=== PATIENT | male | born 1990 | race African-American/Black ===

== ENCOUNTER 2017-11-27 08:05 | Emergency (ER) | payer SELFPAY ==
[2017-11-27 08:13] VITALS: BP 118/75; PULSE 60; TEMP 97.8; BMI 24.7
[2017-11-27] MEDS ORDERED: DIPHTH,PERTUSS(ACELL),TET 0.5 ML DISP.SYRIN IM ONE (08:23)
--- NOTE | 2017-11-27 08:23 | PDOC ---
History of Present Illness - General Chief Complaint: Injury Stated Complaint: LACERATION Time Seen by Provider: 11/27/17 08:20 History Source: Patient Exam Limitations: No Limitations - History of Present Illness Initial Comments: 11/27/17 09:21 27 yr male was climbing a fence and cut his left palm, thumb area this AM Occurred: reports: this morning (530 ) Past History - Past Medical History Allergies/Adverse Reactions: Allergies Allergy/AdvReac Type Severity Reaction Status Date / Time No Known Allergies Allergy Verified 11/27/17 08:12 Home Medications: Ambulatory Orders NK [No Known Home Medication] 11/27/17 COPD: No DVT: No Other medical history: denies - Suicide/Smoking/Psychosocial Hx Smoking History: Never smoked Information on smoking cessation initiated: No Hx Alcohol Use: No Drug/Substance Use Hx: No Substance Use Type: None Review of Systems - Review of Systems Able to Perform ROS?: Yes Is the patient limited Estonian proficient: No Integumentary: Yes: Symptoms Reported *Physical Exam - Vital Signs Last Vital Signs Temp Pulse Resp BP Pulse Ox 97.8 F 60 18 118/75 100 11/27/17 08:09 11/27/17 08:09 11/27/17 08:09 11/27/17 08:09 11/27/17 08:09 - Physical Exam General Appearance: Yes: Nourished, Appropriately Dressed HEENT: positive: EOMI, JASS Extremity: positive: Normal Capillary Refill, Normal Range of Motion, Other ( left thumb palm surface with 4cm linear x2cm width laceation full thickness, muscle is intact, no tendon damage, nv intact FROM of the thumb 5/5 strength) Procedures - Laceration/Wound Repair Left Volar Finger 1st digit Wound Length: 2.6 to 5.0 cm Wound Explored: clean Wound's Depth, Shape: into muscle (muscle intact but exposed ) Irrigated w/ Saline: Yes Betadine Prep: Yes Anesthesia: 1% Lidocaine Amount of Anesthetic (ccs): 6 Wound Repaired With: Sutures Suture Size/Type: 4:0, nylon Number of Sutures: 6 Layer Closure: No Sterile Dressing Applied: Yes Progress: 11/27/17 09:25 tolerated well NV intact Medical Decision Making - Medical Decision Making 11/27/17 09:21 cc: left thumb laceration this AM pt with bleeding area FROM of the thumb and all digits nv intact will repair with sutures tetanus will be updated tolerated procedure well risks and benefits explained follow up care and procedures discussed pt agrees with plan all questions asked and answered at discharge pt discharged with 2 female friends 11/27/17 09:25 *DC/Admit/Observation/Transfer Diagnosis at time of Disposition: Laceration - Discharge Dispostion Disposition: HOME Condition at time of disposition: Improved - Referrals - Patient Instructions Printed Discharge Instructions: DI for Laceration Repair -- Complex Additional Instructions: keep clean and dry do not remove the dressing for 2 days, then you can remove and gently clean with warm water on a cotton ball apply bacitracin ointment and cover with bandaid do this daily let the wound air dry when you are at home cover at night to sleep and when at work Return in 10 days for suture removal return SOONER if any redness, drainage increased pain or sign of infection or any other concerns - Post Discharge Activity Forms/Work/School Notes: Back to Work
== END 2017-11-27 09:17 | disposition home or self-care (01) ==
LOC: JERFT 08:05
PROC: 0HQGXZZ Repair Left Hand Skin, External Approach (ICD-10-PCS; principal; 2017-11-27)
PROC: 3E0234Z Introduction of Serum, Toxoid and Vaccine into Muscle, Percutaneous Approach (ICD-10-PCS; 2017-11-27)
DX: S61.012A Laceration without foreign body of left thumb without damage to nail, initial encounter (principal); S61.412A Laceration without foreign body of left hand, initial encounter; W22.8XXA Striking against or struck by other objects, initial encounter; Y93.89 Activity, other specified; Y92.9 Unspecified place or not applicable
CPT/HCPCS: 90715; 99282-25

== ENCOUNTER 2017-12-12 08:06 | Emergency (ER) | payer SELFPAY ==
[2017-12-12 08:10] VITALS: BP 104/71; PULSE 65; TEMP 98.3; BMI 22.3
--- NOTE | 2017-12-12 08:19 | PDOC ---
Suture Removal/Wound Check HPI - History of Present Illness Chief Complaint: Suture/Staple Removal(Here) Stated Complaint: STAPLE/SUTURE REMOVAL Time Seen by Provider: 12/12/17 08:11 History Source: Yes: Patient Exam Limitations: Yes: No Limitations Treated at: [facility] ED - Previous ED Treatment Type of procedure performed on last visit: Yes: Laceration Repair Tetanus Immunization: Yes: Up to Date Past History - Travel Traveled outside of the country in the last 30 days: No Close contact w/someone who was outside of country & ill: No - Past Medical History Allergies/Adverse Reactions: Allergies Allergy/AdvReac Type Severity Reaction Status Date / Time No Known Allergies Allergy Verified 12/12/17 08:07 Home Medications: Ambulatory Orders NK [No Known Home Medication] 11/27/17 COPD: No DVT: No - Suicide/Smoking/Psychosocial Hx Smoking History: Never smoked Have you smoked in the past 12 months: No Information on smoking cessation initiated: No Hx Alcohol Use: No Drug/Substance Use Hx: No Substance Use Type: None Suture Removal/Wound Check PE - Physical Exam Laceration/Wound Check Symptoms: reports: None Comments: 12/12/17 08:16 left thumb sutures here for removal well healed nv intact *Review of Systems - Review of Systems Able to Perform ROS?: Yes Constitutional: No: Symptoms Reported HEENTM: No: Symptoms Reported Respiratory: No: Symptoms reported Cardiac (ROS): No: Symptoms Reported ABD/GI: No: Symptoms Reported : No: Symptoms Reported Musculoskeletal: No: Symptoms Reported Integumentary: Yes: Symptoms Reported *Physical Exam - Vital Signs Last Vital Signs Temp Pulse Resp BP Pulse Ox 98.3 F 65 18 104/71 100 12/12/17 08:08 12/12/17 08:08 12/12/17 08:08 12/12/17 08:08 12/12/17 08:08 - Physical Exam General Appearance: Yes: Nourished, Appropriately Dressed HEENT: positive: EOMI, JASS Musculoskeletal: positive: Normal Inspection Neurologic: positive: Fully Oriented, Alert, Normal Mood/Affect, Normal Response , Motor Strength 5/5 Procedures - Additional Procedures Progress: 12/12/17 08:27 left thumb with 8 intact sutures removed without difficulty. *DC/Admit/Observation/Transfer Diagnosis at time of Disposition: Visit for suture removal - Discharge Dispostion Disposition: HOME Condition at time of disposition: Good - Referrals - Patient Instructions Printed Discharge Instructions: DI for Suture Removal Additional Instructions: keep the area clean and dry apply vitamin E oil to the area to help smoothe the scar - Post Discharge Activity
== END 2017-12-12 08:32 | disposition home or self-care (01) ==
LOC: JERFT 08:06
DX: Z48.817 Encounter for surgical aftercare following surgery on the skin and subcutaneous tissue (principal); Z48.02 Encounter for removal of sutures
CPT/HCPCS: 99281-25